=== PATIENT | female | born 1940 | race Caucasian/White ===

== ENCOUNTER 2018-06-17 02:00 | Inpatient (IN) ==
[2018-06-17] MEDS ORDERED: Ondansetron 4 MG/2 ML VIAL IVP ONE (02:20)
--- NOTE | 2018-06-17 02:20 | Emergency Department Note ---
Disposition Clinical Impression: Urinary tract infection Disposition: Admitted As Inpatient Condition: Fair Time of Disposition: 03:43 General Adult HPI - General Stated complaint: A fib Time Seen by Provider: 06/17/18 02:05 Nursing Notes Reviewed: Yes Vital Signs Reviewed: Yes - History of Present Illness HPI Narrative: Ms Hernández has been confused for the last 24 hours. She is a poor historian and falls asleep frequently during the interview but her son accompanies her after transport to [facility] by squad. She was found in the bathroom in the squad reports that she was not responding appropriately and did seem rather disoriented. Her son adds that she has been coughing up sputum for the last 24 hours or so. She is a COPD patient who still smokes. Not on home oxygen. Heart history significant for a valve replacement at [facility] in [place] one month ago. She does report that she is had a headache a small amount of cough and shortness of breath. She also tells me that she was incontinent of urine 1 earlier today. No diarrhea no emesis but a little bit of nausea. Denies abdominal pain. She feels generally weak but not in any one particular extremity. Denies any numbness or tingling in any extremity. She is unable to elaborate on any of the above symptoms. She tells me that she did get a flu shot earlier this year. - Related Data Home Medications Medication Instructions Recorded Confirmed Paroxetine HCl [Paroxetine] 40 mg PO DAILY 08/07/15 06/17/18 Cetirizine HCl [Zyrtec] 10 mg PO DAILY 08/18/15 06/17/18 Cranberry Fruit Extract [Cranberry] 425 mg PO TID 08/18/15 06/17/18 Melatonin/Pyridoxine HCl (B6) 10 mg PO HS PRN 08/18/15 06/17/18 [Melatonin 5 mg Tablet] Multivitamin [Multi-Day Vitamins] 1 each PO DAILY 08/18/15 06/17/18 HYDROcodone/Acet 7.5/325 mg [[place] 1 tab PO Q6H PRN 09/08/16 06/17/18 7.5-325 mg] Pravastatin Sodium 80 mg PO DAILY 09/08/16 06/17/18 Cyclobenzaprine [Flexeril] 5 mg PO TID PRN 10/04/17 06/17/18 Aspirin [Adult Aspirin Regimen] 81 mg PO DAILY 05/28/18 06/17/18 Clopidogrel [Plavix] 75 mg PO DAILY 05/28/18 06/17/18 Docusate Sodium [Dulcolax Stool 100 mg PO TID PRN 05/28/18 06/17/18 Softener] Fluticasone Propionate Nasal 27.5 mcg NS BID 05/28/18 06/17/18 [Flonase] Montelukast [Singulair] 10 mg PO HS 05/28/18 06/17/18 Previous Rx's Medication Instructions Recorded Carvedilol 3.125 mg PO BID #60 tab 10/07/17 Furosemide [Lasix] 20 mg PO DAILY #30 tablet 10/07/17 Potassium Chloride 10 meq PO DAILY #30 tab.er.prt 10/07/17 Allergies Allergy/AdvReac Type Severity Reaction Status Date / Time Lemon AdvReac Severe Migraine Verified 06/17/18 02:23 ciprofloxacin [From Cipro] AdvReac Dizziness Verified 06/17/18 02:23 Sulfa (Sulfonamide AdvReac Nausea Verified 06/17/18 02:23 Antibiotics) Constitutional: Denies: fever, chills Eyes: Denies: vision change ENT ED: Denies: throat pain Cardiovascular: Denies: chest pain, palpitations Gastrointestinal: Reports: nausea. Denies: abdominal pain, vomiting, diarrhea Genitourinary: Reports: as per HPI Musculoskeletal: Denies: myalgia Neurological: Reports: headache, confusion Endocrine: Reports: fatigue Hematological/Lymphatic: Denies: easy bleeding, easy bruising Past Medical History - Past Medical History Medical history: Reports: arthritis, COPD, fibromyalgia, hyperlipidemia, migraine, valvular heart disease Surgical history: Reports: cholecystectomy, hip replacement, hysterectomy Psychiatric history: Reports: anxiety, depression [employer] history: Reports: bilateral tubal ligation - Social History Smoking Status: Current every day smoker Smokeless Tobacco Status: No Alcohol use: Reports: none Drug use: Reports: none Physical Exam - General Limitations: altered mental status (Somnolent without frequent tactile redirection) General appearance: in no apparent distress, lethargic - Head Head exam: atraumatic, normocephalic, normal inspection, other (Negative Drake sign negative raccoon eyes) - Eye Eye exam: Present: normal appearance, PERRL, EOMI, conjunctival injection. Absent: periorbital swelling, periorbital tenderness - ENT ENT exam: normal oropharynx, TM's normal bilaterally, normal external ear exam - Neck Neck exam: Present: normal inspection, full ROM. Absent: lymphadenopathy - Chest Chest inspection: Present: normal inspection, symmetric chest wall rise - Respiratory Respiratory exam: Present: other (Inspiratory crackles left lower lobe. Otherwise clear to auscultation.). Absent: respiratory distress, wheezes, stridor, accessory muscle use - Cardiovascular Cardiovascular exam: Present: normal rhythm, tachycardia (110 bpm), normal heart sounds, systolic murmur (2/6 systolic ejection murmur best heard at right upper sternal border). Absent: diastolic murmur - Abdominal Exam Abdominal exam: Present: soft, Non-Tender - Extremities Exam Extremities exam: Present: normal inspection. Absent: pedal edema, calf tenderness (No calf erythema pain or cord) - Neurological Exam Neurological exam: Present: alert (When aroused with verbal and gentle tactile stimulation), CN II-XII intact. Absent: oriented X3 (Cannot name the year but states her name and place correctly), motor sensory deficit - Skin Skin exam: Present: other (Diaphoretic) Course Vital Signs Temperature 98.1 F 06/17/18 02:00 Pulse Rate 110 06/17/18 02:00 Respiratory Rate 20 06/17/18 02:00 Blood Pressure 120/75 06/17/18 02:00 O2 Sat by Pulse Oximetry 93 06/17/18 02:00 Temperature 98.1 F 06/17/18 02:00 Pulse Rate 99 06/17/18 03:28 Respiratory Rate 20 06/17/18 03:28 Blood Pressure 117/52 06/17/18 03:28 O2 Sat by Pulse Oximetry 95 06/17/18 03:28 Oxygen Delivery Oxygen Delivery Nasal Cannula Medical Decision Making - [facility] Narrative Medical decision making narrative: Mental status changes. Head CAT scan normal. Probably an infectious etiology although she is not frankly septic. She has some evidence of pneumonia on chest x-ray which appears to have a left lower lobe infiltrate. It does look similar to the most previous study which was read as atelectasis versus pneumonia however today's was read as no acute disease. She does have some findings of urinary tract infection as well. Daughter tells ER staff she typically gets confused like this with a urinary tract infection and she did have some urinary incontinence today. Regarding the possibility of pneumonia she was in [facility] in [place] overnight for the heart procedure about a month ago therefore we will treat this as a hospital acquired pneumonia with Zosyn which will also cover the urinary tract. On reassessment she is actually a bit more awake and alert and is able to consent to the CAT scan of the chest after I explained the reasoning for doing so. She has a high d-dimer probably secondary to an infectious process however she does not meet perc criteria therefore imaging is warranted. I did attempt to wean her oxygen on reassessment however her saturations dropped into the 80s on room air but rebounded nicely on 2 L to the mid 90s. - Medical Records Medical records reviewed: Yes I reviewed the patient's medical records. - Lab Data Lab results reviewed: Yes I reviewed the patient's lab results. Result diagrams: 06/17/18 03:00 06/17/18 03:00 Lab Results 06/17/18 06/17/18 06/17/18 Range/Units 02:13 03:00 03:00 WBC (4.3-11.1) K/mcL RBC (3.82-4.97) M/mcL Hgb (11.5-15.4) g/dL Hct (35.3-44.9) % MCV (83.0-100.0) fL MCH (28.0-33.3) pg MCHC (31.6-35.5) g/dL RDW (11.5-14.5) % Plt Count (140-400) K/mcL MPV (9.4-12.4) fL Immature Gran % (0-4) % Seg Neutrophils % % Lymphocytes % % Monocytes % % Eosinophils % % Basophils % % Neutrophils # (1.6-8.9) K/mcL Lymphocytes # (0.6-4.6) K/mcL Monocytes # (0.0-1.3) K/mcL Eosinophils # (0.0-0.6) K/mcL Basophils # (0.0-0.2) K/mcL D-Dimer (0-500) ng/mLFEU VBG pH (7.32-7.42) pH Units VBG pCO2 (41-51) mmHg VBG pO2 (25-50) mmHg VBG HCO3 (21-27) mEq/L Sodium 131 L (136-145) mEq/L Potassium 3.4 L (3.5-5.1) mEq/L Chloride 96 L (98-107) mEq/L Carbon Dioxide 24 (23-29) mEq/L BUN 9 (8-23) mg/dL Creatinine 0.83 (0.60-1.20) mg/dL Est GFR ( Amer) > 60 (> 60) Est GFR (Non-Af Amer) > 60 (> 60) BUN/Creatinine Ratio 11 (6-26) Glucose 138 H (70-105) mg/dL POC Glucose 134 H (70-99) mg/dL Calculated Osmolality 273 L (280-300) Lactic Acid 1.8 (0.5-2.2) mmol/L Calcium 9.2 (8.6-10.3) mg/dL Phosphorus (2.7-4.5) mg/dL Magnesium 1.6 (1.6-2.6) mg/dL Total Bilirubin 1.1 H (0.3-1.0) mg/dL AST 18 (13-39) Units/L ALT 10 (7-52) Units/L Alkaline Phosphatase 83 (34-104) Units/L Troponin I (< 0.04) ng/mL B-Natriuretic Peptide (Less than 100) pg/mL Serum Total Protein 7.1 (6.4-8.9) g/dL Albumin 4.0 (3.5-5.7) g/dL Globulin 3.1 (2.4-3.5) g/dL Albumin/Globulin Ratio 1.3 (1.1-2.2) Lipase (11-82) Units/L TSH (0.340-5.600) mcIU/mL Urine Color (Yellow) Urine Clarity (Clear) Urine pH (5.0-8.0) pH Units Ur Specific [place] (1.010-1.025) Urine Protein (Neg-Trace) mg/dL Urine Glucose (UA) (Normal) mg/dL Urine Ketones (Negative) mg/dL Urine Blood (Negative) Urine Nitrite (Negative) Urine Bilirubin (Negative) Urine Urobilinogen (Normal) mg/dL Ur Leukocyte Esterase (Negative) Urine Microscopic RBC (0-3) per hpf Urine Microscopic WBC (0-3) per hpf Ur Squamous Epith Cells (None-Few) per lpf Urine Bacteria (None-Few) per hpf Ur Culture Indicated? (NO) Salicylates (15.0-30.0) mg/dL Urine Opiates Screen (Rkxqpw=198) ng/mL Acetaminophen (10-20) mcg/mL Ur Barbiturates Screen (Uiuvqd=514) ng/mL Ur Phencyclidine Scrn (Cutoff=25) ng/mL Ur Amphetamines Screen (Ttggbv=4196) ng/mL U Benzodiazepines Scrn (Didplc=301) ng/mL Urine Cocaine Screen (Cutoff= 300) ng/mL U Marijuana (THC) Screen (Cutoff = 50) ng/mL Ur Drug Screen Interp Ethyl Alcohol (Less than 10) mg/dL 06/17/18 06/17/18 06/17/18 Range/Units 03:00 03:00 03:00 WBC (4.3-11.1) K/mcL RBC (3.82-4.97) M/mcL Hgb (11.5-15.4) g/dL Hct (35.3-44.9) % MCV (83.0-100.0) fL MCH (28.0-33.3) pg MCHC (31.6-35.5) g/dL RDW (11.5-14.5) % Plt Count (140-400) K/mcL MPV (9.4-12.4) fL Immature Gran % (0-4) % Seg Neutrophils % % Lymphocytes % % Monocytes % % Eosinophils % % Basophils % % Neutrophils # (1.6-8.9) K/mcL Lymphocytes # (0.6-4.6) K/mcL Monocytes # (0.0-1.3) K/mcL Eosinophils # (0.0-0.6) K/mcL Basophils # (0.0-0.2) K/mcL D-Dimer 1657 H (0-500) ng/mLFEU VBG pH (7.32-7.42) pH Units VBG pCO2 (41-51) mmHg VBG pO2 (25-50) mmHg VBG HCO3 (21-27) mEq/L Sodium (136-145) mEq/L Potassium (3.5-5.1) mEq/L Chloride (98-107) mEq/L Carbon Dioxide (23-29) mEq/L BUN (8-23) mg/dL Creatinine (0.60-1.20) mg/dL Est GFR ( Amer) (> 60) Est GFR (Non-Af Amer) (> 60) BUN/Creatinine Ratio (6-26) Glucose (70-105) mg/dL POC Glucose (70-99) mg/dL Calculated Osmolality (280-300) Lactic Acid (0.5-2.2) mmol/L Calcium (8.6-10.3) mg/dL Phosphorus 2.6 L (2.7-4.5) mg/dL Magnesium (1.6-2.6) mg/dL Total Bilirubin (0.3-1.0) mg/dL AST (13-39) Units/L ALT (7-52) Units/L Alkaline Phosphatase (34-104) Units/L Troponin I (< 0.04) ng/mL B-Natriuretic Peptide (Less than 100) pg/mL Serum Total Protein (6.4-8.9) g/dL Albumin (3.5-5.7) g/dL Globulin (2.4-3.5) g/dL Albumin/Globulin Ratio (1.1-2.2) Lipase < 3 L (11-82) Units/L TSH 2.023 (0.340-5.600) mcIU/mL Urine Color (Yellow) Urine Clarity (Clear) Urine pH (5.0-8.0) pH Units Ur Specific [place] (1.010-1.025) Urine Protein (Neg-Trace) mg/dL Urine Glucose (UA) (Normal) mg/dL Urine Ketones (Negative) mg/dL Urine Blood (Negative) Urine Nitrite (Negative) Urine Bilirubin (Negative) Urine Urobilinogen (Normal) mg/dL Ur Leukocyte Esterase (Negative) Urine Microscopic RBC (0-3) per hpf Urine Microscopic WBC (0-3) per hpf Ur Squamous Epith Cells (None-Few) per lpf Urine Bacteria (None-Few) per hpf Ur Culture Indicated? (NO) Salicylates < 2.5 L (15.0-30.0) mg/dL Urine Opiates Screen (Xrffxp=419) ng/mL Acetaminophen < 10 L (10-20) mcg/mL Ur Barbiturates Screen (Pylvnb=599) ng/mL Ur Phencyclidine Scrn (Cutoff=25) ng/mL Ur Amphetamines Screen (Lzxsjf=5534) ng/mL U Benzodiazepines Scrn (Smhamy=036) ng/mL Urine Cocaine Screen (Cutoff= 300) ng/mL U Marijuana (THC) Screen (Cutoff = 50) ng/mL Ur Drug Screen Interp Ethyl Alcohol < 10 (Less than 10) mg/dL 06/17/18 06/17/18 06/17/18 Range/Units 03:00 03:00 03:00 WBC 21.9 H (4.3-11.1) K/mcL RBC 4.69 (3.82-4.97) M/mcL Hgb 14.5 (11.5-15.4) g/dL Hct 42.3 (35.3-44.9) % MCV 90.2 (83.0-100.0) fL MCH 30.9 (28.0-33.3) pg MCHC 34.3 (31.6-35.5) g/dL RDW 13.1 (11.5-14.5) % Plt Count 216 (140-400) K/mcL MPV 9.5 (9.4-12.4) fL Immature Gran % 1.0 (0-4) % Seg Neutrophils % 88.0 % Lymphocytes % 3.9 % Monocytes % 6.8 % Eosinophils % 0.1 % Basophils % 0.2 % Neutrophils # 19.3 H (1.6-8.9) K/mcL Lymphocytes # 0.9 (0.6-4.6) K/mcL Monocytes # 1.5 H (0.0-1.3) K/mcL Eosinophils # 0.0 (0.0-0.6) K/mcL Basophils # 0.0 (0.0-0.2) K/mcL D-Dimer (0-500) ng/mLFEU VBG pH (7.32-7.42) pH Units VBG pCO2 (41-51) mmHg VBG pO2 (25-50) mmHg VBG HCO3 (21-27) mEq/L Sodium (136-145) mEq/L Potassium (3.5-5.1) mEq/L Chloride (98-107) mEq/L Carbon Dioxide (23-29) mEq/L BUN (8-23) mg/dL Creatinine (0.60-1.20) mg/dL Est GFR ( Amer) (> 60) Est GFR (Non-Af Amer) (> 60) BUN/Creatinine Ratio (6-26) Glucose (70-105) mg/dL POC Glucose (70-99) mg/dL Calculated Osmolality (280-300) Lactic Acid (0.5-2.2) mmol/L Calcium (8.6-10.3) mg/dL Phosphorus (2.7-4.5) mg/dL Magnesium (1.6-2.6) mg/dL Total Bilirubin (0.3-1.0) mg/dL AST (13-39) Units/L ALT (7-52) Units/L Alkaline Phosphatase (34-104) Units/L Troponin I < 0.03 (< 0.04) ng/mL B-Natriuretic Peptide 151 H (Less than 100) pg/mL Serum Total Protein (6.4-8.9) g/dL Albumin (3.5-5.7) g/dL Globulin (2.4-3.5) g/dL Albumin/Globulin Ratio (1.1-2.2) Lipase (11-82) Units/L TSH (0.340-5.600) mcIU/mL Urine Color (Yellow) Urine Clarity (Clear) Urine pH (5.0-8.0) pH Units Ur Specific [place] (1.010-1.025) Urine Protein (Neg-Trace) mg/dL Urine Glucose (UA) (Normal) mg/dL Urine Ketones (Negative) mg/dL Urine Blood (Negative) Urine Nitrite (Negative) Urine Bilirubin (Negative) Urine Urobilinogen (Normal) mg/dL Ur Leukocyte Esterase (Negative) Urine Microscopic RBC (0-3) per hpf Urine Microscopic WBC (0-3) per hpf Ur Squamous Epith Cells (None-Few) per lpf Urine Bacteria (None-Few) per hpf Ur Culture Indicated? (NO) Salicylates (15.0-30.0) mg/dL Urine Opiates Screen (Bwtopj=297) ng/mL Acetaminophen (10-20) mcg/mL Ur Barbiturates Screen (Znerku=772) ng/mL Ur Phencyclidine Scrn (Cutoff=25) ng/mL Ur Amphetamines Screen (Xrlnno=8940) ng/mL U Benzodiazepines Scrn (Qkdugs=228) ng/mL Urine Cocaine Screen (Cutoff= 300) ng/mL U Marijuana (THC) Screen (Cutoff = 50) ng/mL Ur Drug Screen Interp Ethyl Alcohol (Less than 10) mg/dL 06/17/18 06/17/18 06/17/18 Range/Units 03:17 03:27 03:27 WBC (4.3-11.1) K/mcL RBC (3.82-4.97) M/mcL Hgb (11.5-15.4) g/dL Hct (35.3-44.9) % MCV (83.0-100.0) fL MCH (28.0-33.3) pg MCHC (31.6-35.5) g/dL RDW (11.5-14.5) % Plt Count (140-400) K/mcL MPV (9.4-12.4) fL Immature Gran % (0-4) % Seg Neutrophils % % Lymphocytes % % Monocytes % % Eosinophils % % Basophils % % Neutrophils # (1.6-8.9) K/mcL Lymphocytes # (0.6-4.6) K/mcL Monocytes # (0.0-1.3) K/mcL Eosinophils # (0.0-0.6) K/mcL Basophils # (0.0-0.2) K/mcL D-Dimer (0-500) ng/mLFEU VBG pH 7.42 (7.32-7.42) pH Units VBG pCO2 37 L (41-51) mmHg VBG pO2 47 (25-50) mmHg VBG HCO3 24 (21-27) mEq/L Sodium (136-145) mEq/L Potassium (3.5-5.1) mEq/L Chloride (98-107) mEq/L Carbon Dioxide (23-29) mEq/L BUN (8-23) mg/dL Creatinine (0.60-1.20) mg/dL Est GFR ( Amer) (> 60) Est GFR (Non-Af Amer) (> 60) BUN/Creatinine Ratio (6-26) Glucose (70-105) mg/dL POC Glucose (70-99) mg/dL Calculated Osmolality (280-300) Lactic Acid (0.5-2.2) mmol/L Calcium (8.6-10.3) mg/dL Phosphorus (2.7-4.5) mg/dL Magnesium (1.6-2.6) mg/dL Total Bilirubin (0.3-1.0) mg/dL AST (13-39) Units/L ALT (7-52) Units/L Alkaline Phosphatase (34-104) Units/L Troponin I (< 0.04) ng/mL B-Natriuretic Peptide (Less than 100) pg/mL Serum Total Protein (6.4-8.9) g/dL Albumin (3.5-5.7) g/dL Globulin (2.4-3.5) g/dL Albumin/Globulin Ratio (1.1-2.2) Lipase (11-82) Units/L TSH (0.340-5.600) mcIU/mL Urine Color Yellow (Yellow) Urine Clarity Slightly Cloudy A (Clear) Urine pH 6.0 (5.0-8.0) pH Units Ur Specific [place] 1.020 (1.010-1.025) Urine Protein 100 H (Neg-Trace) mg/dL Urine Glucose (UA) Normal (Normal) mg/dL Urine Ketones Negative (Negative) mg/dL Urine Blood Trace-intact H (Negative) Urine Nitrite Positive A (Negative) Urine Bilirubin Negative (Negative) Urine Urobilinogen Normal (Normal) mg/dL Ur Leukocyte Esterase Small H (Negative) Urine Microscopic RBC 0-3 (0-3) per hpf Urine Microscopic WBC 5-15 H (0-3) per hpf Ur Squamous Epith Cells Few (None-Few) per lpf Urine Bacteria Moderate H (None-Few) per hpf Ur Culture Indicated? YES A (NO) Salicylates (15.0-30.0) mg/dL Urine Opiates Screen Positive H (Apdkvr=938) ng/mL Acetaminophen (10-20) mcg/mL Ur Barbiturates Screen Negative (Invybz=260) ng/mL Ur Phencyclidine Scrn Negative (Cutoff=25) ng/mL Ur Amphetamines Screen Negative (Xsueog=7030) ng/mL U Benzodiazepines Scrn Negative (Lqdzfh=930) ng/mL Urine Cocaine Screen Negative (Cutoff= 300) ng/mL U Marijuana (THC) Screen Negative (Cutoff = 50) ng/mL Ur Drug Screen Interp See Below Ethyl Alcohol (Less than 10) mg/dL - Radiology Data Radiology results reviewed: Yes I reviewed the patient's radiology results. - EKG Data EKG #1 EKG attestation: Yes I reviewed and interpreted this EKG. EKG results narrative: EKG as interpreted by me sinus tachycardia 110 bpm no T-wave abnormalities. One box ST depression V2 V3 V4 V5 V6. No ST elevations. Normal axis. No evidence of hypertrophy. ST depressions not present January 2018 study.
[2018-06-17] MEDS ORDERED: 0.9 % Sodium Chloride 500 ML IVC ONE ×2 (02:21→05:39)
[2018-06-17 03:18] LABS: Basophils % 0.2 %; Eosinophils % 0.1 %; Hematocrit 42.3 % (35.3-44.9); Hemoglobin 14.5 g/dL (11.5-15.4); Lymphocytes # 0.9 K/mcL (0.6-4.6); Lymphocytes % 3.9 %; Mean Corpuscular HGB Conc 34.3 g/dL (31.6-35.5); Mean Corpuscular Hemoglobin 30.9 pg (28.0-33.3); Mean Corpuscular Volume 90.2 fL (83.0-100.0); Mean Platelet Volume 9.5 fL (9.4-12.4); Monocytes # 1.5 K/mcL (0.0-1.3); Monocytes % 6.8 %; Neutrophils # 19.3 K/mcL (1.6-8.9); Platelet Count 216 K/mcL (140-400); Red Blood Count 4.69 M/mcL (3.82-4.97); Red Cell Distribution Width 13.1 % (11.5-14.5)
[2018-06-17 03:22] LABS: VBG HCO3 24 mEq/L (21-27); VBG PCO2 37 mmHg (41-51); VBG PH 7.42 pH Units (7.32-7.42); VBG PO2 47 mmHg (25-50)
[2018-06-17 03:24] LABS: Acetaminophen < 10 mcg/mL (10-20); Alanine Aminotransferase 10 Units/L (7-52); Albumin/Globulin Ratio 1.3 (1.1-2.2); Alkaline Phosphatase 83 Units/L (34-104); Aspartate Amino Transferase 18 Units/L (13-39); BUN/Creatinine Ratio 11 (6-26); Bilirubin,Total 1.1 mg/dL (0.3-1.0); Blood Urea Nitrogen 9 mg/dL (8-23); Calcium 9.2 mg/dL (8.6-10.3); Carbon Dioxide 24 mEq/L (23-29); Chloride 96 mEq/L (98-107); Globulin 3.1 g/dL (2.4-3.5); Glucose 138 mg/dL (70-105); Magnesium 1.6 mg/dL (1.6-2.6); Osmolality,Calculated 273 (280-300); Potassium 3.4 mEq/L (3.5-5.1); Salicylate < 2.5 mg/dL (15.0-30.0); Sodium 131 mEq/L (136-145); Total Protein 7.1 g/dL (6.4-8.9); eGFR For Non-African Americans > 60 (> 60)
[2018-06-17 03:35] LABS: Bilirubin,Urine Negative (Negative); Blood,Urine Trace-intact (Negative); Clarity,Urine Slightly Cloudy (Clear); Color,Urine Yellow (Yellow); Glucose,Urine (UA) Normal (Normal); Ketones,Urine Negative (Negative); Leukocyte Esterase,Urine Small (Negative); Nitrite,Urine Positive (Negative); Protein,Urine 100 mg/dL (Neg-Trace); Urobilinogen,Urine Normal (Normal)
[2018-06-17 03:38] LABS: Bacteria,Urine Moderate per hpf (None-Few); RBC,Urine 0-3 per hpf (0-3); Squamous Epithelial Cell,Urine Few per lpf (None-Few)
[2018-06-17 03:40] LABS: Ethanol < 10 mg/dL (Less than 10); Lipase < 3 Units/L (11-82); Phosphorous 2.6 mg/dL (2.7-4.5)
[2018-06-17] MEDS ORDERED: Isovue-370 500 ML INFUS..BTL IV ONE ×2 (03:42→03:59)
[2018-06-17] MEDS ORDERED: Piperacillin/Tazobactam 4.5 GM in 0.9 % Sodium Chloride Mini Bag 100 ML IVPB ONE ×2 (03:42→03:59)
[2018-06-17 03:52] LABS: Thyroid Stimulating Hormone 2.023 mcIU/mL (0.340-5.600)
[2018-06-17] MEDS ORDERED: Naloxone 0.4 MG/ML INJ IVP PRN (03:59)
[2018-06-17] MEDS ORDERED: MELATONIN PO PRN (03:59)
[2018-06-17] MEDS ORDERED: PYRIDOXINE HCL PO PRN (03:59)
[2018-06-17] MEDS ORDERED: *HR* HYDROcodone/Acet 7.5/325 mg TABLET PO PRN (03:59)
[2018-06-17 04:00] LABS: Amphetamine Screen,Urine Negative ng/mL (Cutoff=1000); Barbiturate Screen,Urine Negative ng/mL (Cutoff=200); Benzodiazepines Screen,Urine Negative ng/mL (Cutoff=200); Cannabinoid Screen,Urine Negative ng/mL (Cutoff = 50); Cocaine Screen,Urine Negative ng/mL (Cutoff= 300); Opiate Screen,Urine Positive ng/mL (Cutoff=300); Phencyclidine Screen,Urine Negative ng/mL (Cutoff=25)
[2018-06-17] MEDS ORDERED: Piperacillin/Tazobactam 3.375 GM in 0.9 % Sodium Chloride Mini Bag 100 ML IVPB SCH ×2 (04:00→12:00)
[2018-06-17 04:05] LABS: INR 1.2; Prothrombin Time 13.7 Seconds (9.4-12.1)
[2018-06-17 04:08] LABS: Activated Partial Thrombo Time 31.3 Seconds (26.0-36.0)
[2018-06-17] MEDS ORDERED: ISOVUE-370 100 ML INFUS..BTL IVP ONE (04:30)
[2018-06-17] MEDS: 0.9 % Sodium Chloride 1,000 ML IVC SCH (07:11)
[2018-06-17] MEDS ORDERED: *HR* Heparin 5,000 UNIT/ML VIAL SQ ONE (08:00)
[2018-06-17] MEDS: *HR* Heparin 5,000 UNIT/ML VIAL SQ SCH ×2 (09:33→17:41)
[2018-06-17] MEDS: Loratadine 10 MG TABLET PO SCH (09:33)
[2018-06-17] MEDS: Multivit/Ca/Min/Fe/FA 1 TAB TABLET PO SCH (09:34)
[2018-06-17] MEDS: Aspirin Enteric Coated 81 MG Tablet PO SCH (09:34)
[2018-06-17] MEDS: Furosemide 20 MG TABLET PO SCH (09:34)
[2018-06-17] MEDS: CRANBERRY FRUIT EXTRACT 425 MG PO SCH ×3 (09:35→20:14)
[2018-06-17] MEDS: Fluticasone Propionate Nasal 50 MCG/SPRAY BOTTLE NS SCH ×2 (09:35→20:14)
--- NOTE | 2018-06-17 09:57 | Internal Med History&Physical ---
Date of Encounter: 06/17/18 Time of Encounter: 12:29 Assessment and Plan (1) Leukocytosis (leucocytosis) Current visit: Yes Status: Acute She has blood cultures and urine cultures pending she is on Zosyn for hospital- acquired pneumonia she is also on Vanco since she had a recent aortic valve replacement. We will continue to follow her white count. Qualifiers: Leukocytosis type: unspecified Qualified Code(s): D72.829 - Elevated white blood cell count, unspecified (2) HTN (hypertension) Current visit: Yes Status: Acute Her blood pressures been stable we will continue her home dose of carvedilol. Qualifiers: Hypertension type: essential hypertension Qualified Code(s): I10 - Essential (primary) hypertension (3) Mixed hyperlipidemia Current visit: Yes Status: Acute Will continue her home pravastatin. (4) Lumbar foraminal stenosis Current visit: Yes Status: Acute She does have lumbar stenosis. She does get chronic narcotic she states that she takes hydrocodone 7.5 mg 4 times a day. I am going to hold that since she is not alert enough to ask for she also is not alert enough to continue to ask questions I discussed with her she has to be alert enough and not pharmacy asked questions to be able to receive another dose. I am also holding her Flexeril for the same reason (5) S/P AVR (aortic valve replacement) Current visit: Yes Status: Acute (6) Tobacco abuse Current visit: Yes Status: Acute Discussed that she needs to quit. (7) COPD (chronic obstructive pulmonary disease) Current visit: Yes Status: Acute She is not aware of what inhaler she take she does not think that she has nebulizer at home. But she does have those on her home medication list. We will continue duo nebs and oxygen. She may require steroids but I am hesitant at that she has elevated white count and that would decrease her ability to fight off infection. We will continue to follow Qualifiers: COPD type: unspecified COPD Qualified Code(s): J44.9 - Chronic obstructive pulmonary disease, unspecified (8) Urinary tract infection Current visit: Yes Status: Acute Urine culture is pending she is on Zosyn. We will continue that until we have cultures back Qualifiers: Urinary tract infection type: acute cystitis Hematuria presence: with h ematuria Qualified Code(s): N30.01 - Acute cystitis with hematuria (9) DVT prophylaxis Current visit: No Status: Acute She has heparin subcutaneous. (10) Hypokalemia Current visit: No Status: Resolved (11) Aortic stenosis, severe Current visit: No Status: Acute Internal Medicine - H&P: HPI Chief complaint: confusion Admitted From: Home Plans for Post Hospital Care: Home History of present illness: Ms. Hernández is a 77 year old female With a past medical history of hypertension hyperlipidemia status post aortic valve replacement in February 2018 chronic narcotic use, history of sepsis with UTIs presented to the emergency room with confusion and disorientation. She will answer questions appropriately now but she falls asleep mid sentence any have to wake her up while talking to her. She says that she is here because she has UTI again. When I questioned her about that she said this because they told her in ER that she had a UTI. She has not had any change in urinary symptoms she does not have any dysuria urinary frequency hematuria foul-smelling urine. She is incontinence that is chronic there has not been any changes in the frequency or the type of incontinence that she has. She does have confusion and some somnolence. She also states that she has had a cough for a couple of days. She has had some chills and some sweats. She did have some nausea she thinks yesterday morning but denies any emesis. She thinks her cough has gone on all summer. But she does know that it is May currently. In the emergency room she was noted to have a white count of 21,000. She had a CT scan to rule out PE did not show PE but did show some secretions in the airway. She has blood cultures and urine cultures pending. She was started on Zosyn in the ER for possible sepsis versus hospital-acquired pneumonia given the fact that she had her aortic valve replacement in February. Vancomycin was added this morning because of the aortic valve replacement. She was initially tachycardic when she came into the emergency room she did receive to 500 mL IV fluid boluses that did resolve her tachycardia. She currently is not having any pain she states that she does take her pain medicine every 6 hours while at home. She has not had a problem with falling asleep dizziness passing out loss of consciousness she is aware of. Past Med Surg Social Fam HX - Past Medical History Medical history: arthritis, COPD, fibromyalgia, GERD, hyperlipidemia, hypertension, migraine, valvular heart disease (transcatheter avr 03/19/18), other (Pulmonary fibrosis, lumbar foraminal stenosis, hypokalemia, lumbar degenerative disc disease, spondylolisthesis lumbar, obstructive sleep apnea, history of UTIs with sepsis) Additional medical history: rheumatoid arthritis Psychiatric history: anxiety, depression - Past Surgical History Surgical History: cholecystectomy (Robotic laparoscopic cholecystectomy 08/18/2015), heart valve replacement (Transcatheter aortic valve replacement 03/11/2018), hip replacement (Bilateral), orthopedic, other (Carpal tunnel surgery right, right knee meniscus repair,), SHIV/BSO, other (Tubal ligation) - Social History Smoking Status: Current every day smoker Smokeless Tobacco Status: No Alcohol use: none Drug use: none Current living situation: Home - Independent (Family looks in on her) - Family History Father Adopted: No Family Member Ethnicity: Non- Living Status: Hx Family Cardiac Disorders: Yes (Heart disease) Hx Family Respiratory Disorders: No Hx Family Cancer: No Hx Family GI Disorders: No Hx Family Endocrine Disorder: Yes (diabetes) Hx Family Neuromuscular Disorders: No Hx Family Neurologic Disorders: No Hx Family HEENT Disorders: No Hx Family Autoimmune Disorders: No Mother Living Status: Hx Family Cardiac Disorders: Yes (Heart disease) Hx Family Endocrine Disorder: Yes (Diabetes) Brother Living Status: Hx Family Cardiac Disorders: Yes (mi) Sister Living Status: Hx Family Genitourinary Disorders: Yes (Renal disease) Paternal Grandmother Living Status: Hx Family Endocrine Disorder: Yes (Diabetes) Maternal Grandmother Living Status: Hx Family Cancer: Yes Maternal Grandfather Living Status: Hx Family Cancer: Yes Internal Medicine - H&P: Meds Paroxetine HCl [Paroxetine] 40 mg PO DAILY 08/07/15 [History] Cetirizine HCl [Zyrtec] 10 mg PO DAILY 08/18/15 [History] Cranberry Fruit Extract [Cranberry] 425 mg PO TID 08/18/15 [History] Melatonin/Pyridoxine HCl (B6) [Melatonin 5 mg Tablet] 10 mg PO HS PRN 08/18/15 [History] Multivitamin [Multi-Day Vitamins] 1 each PO DAILY 08/18/15 [History] HYDROcodone/Acet 7.5/325 mg [[place] 7.5-325 mg] 1 tab PO Q6H PRN 09/08/16 [History] Pravastatin Sodium 80 mg PO DAILY 09/08/16 [History] Cyclobenzaprine [Flexeril] 5 mg PO TID PRN 10/04/17 [History] Carvedilol 3.125 mg PO BID #60 tab 10/07/17 [Rx] Furosemide [Lasix] 20 mg PO DAILY #30 tablet 10/07/17 [Rx] Potassium Chloride 10 meq PO DAILY #30 tab.er.prt 10/07/17 [Rx] Aspirin [Adult Aspirin Regimen] 81 mg PO DAILY 05/28/18 [History] Clopidogrel [Plavix] 75 mg PO DAILY 05/28/18 [History] Docusate Sodium [Dulcolax Stool Softener] 100 mg PO TID PRN 05/28/18 [History] Fluticasone Propionate Nasal [Flonase] 27.5 mcg NS BID 05/28/18 [History] Montelukast [Singulair] 10 mg PO HS 05/28/18 [History] Allergy/AdvReac Type Severity Reaction Status Date / Time Lemon AdvReac Severe Migraine Verified 06/17/18 02:23 ciprofloxacin [From Cipro] AdvReac Dizziness Verified 06/17/18 02:23 Sulfa (Sulfonamide AdvReac Nausea Verified 06/17/18 02:23 Antibiotics) All Systems PM: A 10-system review of systems was performed and is negative for pertinent findings except as documented above in the HPI. - Constitutional Constitutional: chills, fatigue, no fever(s), no falls, no malaise, no weakness, no weight gain, no weight loss - EENT Eyes: no change in vision, no loss of vision Nose, mouth and throat: no nasal congestion, no sinus pressure, no sore throat - Cardiovascular Cardiovascular ROS IM: no chest pain, no dyspnea, no lightheadedness, no orthopnea, no palpitations, no paroxysmal nocturnal dyspnea, no syncope - Respiratory Respiratory: cough, wheezing (She has not been using her nebulizer. She does have occasional wheezing.), no hemoptysis, no chest congestion - Gastrointestinal Gastrointestinal: nausea, no abdominal pain, no constipation, no hematochezia, no loose stools, no melena - Genitourinary Genitourinary: urinary incontinence, no difficulty voiding, no dysuria, no hematuria, no urinary frequency - Musculoskeletal Musculoskeletal ROS IM: arthralgias, no limited range of motion, no muscle cramps, no numbness - Integumentary Integumentary IM: no pruritus, no rash - Neurological Neurological ROS: confusion, no dizziness, no focal weakness, no frequent falls, no loss of vision, no paresthesias - Constitutional Vitals: Temp Pulse Resp BP Pulse Ox 97.5 F L 80 14 122/77 93 06/17/18 06:31 06/17/18 06:31 06/17/18 06:31 06/17/18 06:31 06/17/18 06:56 General appearance: Present: A&O X 2 (Name place month year daily week but not date), morbidly obese, no acute distress, answers questions appropriately (But does fall asleep answering questions and has to woken up) - Head Head exam: Present: atraumatic, normocephalic - Eye Eye exam: Present: EOMI, PERRL. Absent: nystagmus - Neck Neck exam general surgery: Present: full ROM, supple, trachea midline. Absent: lymphadenopathy, tenderness - Respiratory Respiratory exam: Present: decreased breath sounds, prolonged expiratory phase, wheezes (Scattered) - Cardiovascular Cardiovascular exam: Present: RRR, +S1, +S2, systolic murmur. Absent: JVD - GI/Abdominal GI/Abdominal exam: Present: normal bowel sounds, soft, no peritoneal signs. Absent: distended, guarding, mass (But obese), tenderness - Extremities Exam Extremities exam: Present: normal capillary refill, warm. Absent: pedal edema - Skin Skin exam: Present: dry, warm. Absent: rash Internal Med - H&P Results - Labs CBC & Chem 7: 06/17/18 03:00 06/17/18 03:00 Labs: Short CBC 06/17/18 Range/Units 03:00 WBC 21.9 H (4.3-11.1) K/mcL Hgb 14.5 (11.5-15.4) g/dL Hct 42.3 (35.3-44.9) % Plt Count 216 (140-400) K/mcL Neutrophils # 19.3 H (1.6-8.9) K/mcL BMP 06/17/18 03:00 Sodium 131 L Potassium 3.4 L Chloride 96 L Carbon Dioxide 24 BUN 9 Creatinine 0.83 Glucose 138 H Calcium 9.2 Cardiac Enzymes 06/17/18 Range/Units 03:00 Troponin I < 0.03 (< 0.04) ng/mL Liver Function 06/17/18 Range/Units 03:00 Total Bilirubin 1.1 H (0.3-1.0) mg/dL AST 18 (13-39) Units/L ALT 10 (7-52) Units/L Alkaline Phosphatase 83 (34-104) Units/L Albumin 4.0 (3.5-5.7) g/dL Urine 06/17/18 Range/Units 03:27 Urine Color Yellow (Yellow) Urine Clarity Slightly Cloudy A (Clear) Urine pH 6.0 (5.0-8.0) pH Units Ur Specific [place] 1.020 (1.010-1.025) Urine Protein 100 H (Neg-Trace) mg/dL Urine Glucose (UA) Normal (Normal) mg/dL - ABG Interpretation ABG results: 06/17/18 03:17 VBG pH 7.42 VBG pCO2 37 L VBG pO2 47 VBG HCO3 24 - Impressions ITS Impressions Head CT 06/17/18 02:20 IMPRESSION: No acute intracranial abnormality. Mild age related volume loss and chronic microvascular ischemic changes. D/ / Cornell Waldrop / Cornell Waldrop Interpreting Provider: Cornell Waldrop Chest X-Ray 06/17/18 02:24 IMPRESSION: No acute cardiopulmonary findings. Emphysema with COPD. D/ / Cornell Waldrop / Cornell Waldrop Interpreting Provider: Cornell Waldrop Chest CTA 06/17/18 03:42 IMPRESSION: Negative for acute pulmonary embolism. Copious tracheobronchial secretions without evidence of aspiration pneumonitis. Query aspiration risk. Mediastinal and hilar lymphadenopathy is presumably reactive and similar to the most recent prior exam as well as exams dating back through 2011, presumably reactive. Moderate centrilobular and paraseptal emphysema. Mild scattered pleural calcifications could potentially reflect asbestos related pleural disease. D/ / Cornell Waldrop / Cornell Waldrop Interpreting Provider: Cornell Waldrop
[2018-06-17] MEDS: Piperacillin/Tazobactam 3.375 GM in 0.9 % Sodium Chloride Mini Bag 100 ML IVPB SCH ×2 (13:08→20:15)
[2018-06-17] MEDS: Ipratropium/Albuterol Neb 3 ML IH SCH ×2 (15:23→18:49)
[2018-06-18] MEDS: Ipratropium/Albuterol Neb 3 ML IH SCH ×6 (00:36→18:54)
[2018-06-18] MEDS: *HR* HYDROcodone/Acet 5/325 mg TABLET PO PRN ×3 (01:10→21:34)
[2018-06-18] MEDS: 0.9 % Sodium Chloride 1,000 ML IVC SCH (03:12)
[2018-06-18] MEDS: Piperacillin/Tazobactam 3.375 GM in 0.9 % Sodium Chloride Mini Bag 100 ML IVPB SCH ×3 (04:20→20:00)
[2018-06-18] MEDS: *HR* Heparin 5,000 UNIT/ML VIAL SQ SCH ×2 (05:29→17:37)
[2018-06-18 05:47] LABS: Basophils % 0.3 %; Eosinophils # 0.1 K/mcL (0.0-0.6); Eosinophils % 0.8 %; Immature Granulocytes % 0.5 % (0-4); Lymphocytes # 1.3 K/mcL (0.6-4.6); Lymphocytes % 11.4 %; Mean Corpuscular HGB Conc 33.7 g/dL (31.6-35.5); Mean Corpuscular Hemoglobin 31.2 pg (28.0-33.3); Mean Corpuscular Volume 92.6 fL (83.0-100.0); Mean Platelet Volume 9.5 fL (9.4-12.4); Monocytes % 8.9 %; Platelet Count 172 K/mcL (140-400); Red Blood Count 3.78 M/mcL (3.82-4.97); Red Cell Distribution Width 13.2 % (11.5-14.5); Segmented Neutrophils % 78.1 %
[2018-06-18 05:48] LABS: Hemoglobin 11.8 g/dL (11.5-15.4)
[2018-06-18 06:03] LABS: BUN/Creatinine Ratio 11 (6-26); Blood Urea Nitrogen 9 mg/dL (8-23); Calcium 8.3 mg/dL (8.6-10.3); Carbon Dioxide 27 mEq/L (23-29); Chloride 99 mEq/L (98-107); Glucose 105 mg/dL (70-105); Osmolality,Calculated 271 (280-300); Potassium 3.6 mEq/L (3.5-5.1); Sodium 131 mEq/L (136-145); eGFR For Non-African Americans > 60 (> 60)
[2018-06-18] MEDS: Furosemide 20 MG TABLET PO SCH (08:21)
[2018-06-18] MEDS: Aspirin Enteric Coated 81 MG Tablet PO SCH (08:21)
[2018-06-18] MEDS: Multivit/Ca/Min/Fe/FA 1 TAB TABLET PO SCH (08:21)
[2018-06-18] MEDS: Fluticasone Propionate Nasal 50 MCG/SPRAY BOTTLE NS SCH ×2 (08:22→20:07)
[2018-06-18] MEDS: Loratadine 10 MG TABLET PO SCH (08:22)
[2018-06-18] MEDS: CRANBERRY FRUIT EXTRACT 425 MG PO SCH ×3 (08:23→20:08)
--- NOTE | 2018-06-18 10:53 | Internal Med Progress Note ---
Date of Encounter: 06/18/18 Time of Encounter: 10:53 - Assessment and plan (1) Leukocytosis (leucocytosis) Current Visit: Yes Status: Acute Assessment and plan: this has improved. she did have a fever last night. will continue the zosyn and the vancomycin with her AVR. cultures are still pending. she is feeling better Qualifiers: Leukocytosis type: unspecified Qualified Code(s): D72.829 - Elevated white blood cell count, unspecified (2) HTN (hypertension) Current Visit: Yes Status: Acute Assessment and plan: has been stable on her home medication Qualifiers: Hypertension type: essential hypertension Qualified Code(s): I10 - Essential (primary) hypertension (3) Mixed hyperlipidemia Current Visit: Yes Status: Acute Assessment and plan: continue her home medication (4) Lumbar foraminal stenosis Current Visit: Yes Status: Acute Assessment and plan: holding flexeril due to age and decreased mental status. was holding the hydrocodone for the same reason. she did get headache last night and has been alert so she did one dose of hydrocodone last night (5) S/P AVR (aortic valve replacement) Current Visit: Yes Status: Acute (6) Tobacco abuse Current Visit: Yes Status: Acute (7) COPD (chronic obstructive pulmonary disease) Current Visit: Yes Status: Acute Qualifiers: COPD type: unspecified COPD Qualified Code(s): J44.9 - Chronic obstructive pulmonary disease, unspecified (8) Urinary tract infection Current Visit: Yes Status: Acute Qualifiers: Urinary tract infection type: acute cystitis Hematuria presence: with h ematuria Qualified Code(s): N30.01 - Acute cystitis with hematuria (9) DVT prophylaxis Current Visit: No Status: Acute (10) Hypokalemia Current Visit: No Status: Resolved (11) Aortic stenosis, severe Current Visit: No Status: Acute - Subjective Interval history: she is feeling better today. she is more alert. she had a headache last night when she had a fever of 100.6. she get a dose of hydrocodone/tylenol then. s he feels better now. she has had a cough with clear sputum. occ sob when getting up, no cp, no palp, no dizzy, she had a small stool today. denies dysuria, urine freq or hematuria. - Constitutional Vitals: Temp Pulse Resp BP Pulse Ox 99.5 F 88 18 122/75 93 06/18/18 07:00 06/18/18 07:00 06/18/18 07:00 06/18/18 07:00 06/18/18 07:00 General appearance: Present: A&O X 2 (Name place month year daily week but not date), morbidly obese, no acute distress, answers questions appropriately (But does fall asleep answering questions and has to woken up) - Head Head exam: Present: atraumatic, normocephalic - Neck Neck exam general surgery: Present: supple, trachea midline. Absent: lymphadenopathy - Respiratory Respiratory exam: Present: wheezes (occ) - Cardiovascular Cardiovascular exam: Present: RRR, systolic murmur - GI/Abdominal GI/Abdominal exam: Present: mass (rlq softball sized firm), no peritoneal signs. Absent: guarding, tenderness - Extremities Exam Extremities exam: Present: normal capillary refill, warm. Absent: pedal edema - Skin Skin exam: Present: dry, warm. Absent: rash Internal Medicine: Result - Labs CBC & Chem 7: 06/18/18 05:30 06/18/18 05:30 Labs: Short CBC 06/18/18 Range/Units 05:30 WBC 11.5 H (4.3-11.1) K/mcL Hgb 11.8 D (11.5-15.4) g/dL Hct 35.0 L (35.3-44.9) % Plt Count 172 (140-400) K/mcL Neutrophils # 9.0 H (1.6-8.9) K/mcL BMP 06/18/18 05:30 Sodium 131 L Potassium 3.6 Chloride 99 Carbon Dioxide 27 BUN 9 Creatinine 0.84 Glucose 105 Calcium 8.3 L - ABG Interpretation ABG results: PT/INR, D-dimer PT 13.7 Seconds (9.4-12.1) H 06/17/18 03:00 D-Dimer 1657 ng/mLFEU (0-500) H 06/17/18 03:00 Consult Discharge Plan - Plan Referrals: Jennifer Zaidi, TRANSPORTATION ASSISTANT [Primary Care Provider] -
[2018-06-18] MEDS ORDERED: Isovue-370 500 ML INFUS..BTL IV ONE (11:05)
[2018-06-18] MEDS ORDERED: ISOVUE-370 100 ML INFUS..BTL IVP ONE (11:34)
[2018-06-18] MEDS: Benzonatate 100 MG CAPSULE PO PRN (21:35)
[2018-06-19] MEDS: Ipratropium/Albuterol Neb 3 ML IH SCH ×6 (00:49→20:24)
[2018-06-19] MEDS: Piperacillin/Tazobactam 3.375 GM in 0.9 % Sodium Chloride Mini Bag 100 ML IVPB SCH ×3 (04:12→20:25)
[2018-06-19 05:48] LABS: Basophils % 0.4 %; Eosinophils # 0.2 K/mcL (0.0-0.6); Eosinophils % 2.8 %; Hematocrit 35.8 % (35.3-44.9); Hemoglobin 12.2 g/dL (11.5-15.4); Immature Granulocytes % 0.6 % (0-4); Lymphocytes # 0.9 K/mcL (0.6-4.6); Lymphocytes % 12.3 %; Mean Corpuscular HGB Conc 34.1 g/dL (31.6-35.5); Mean Corpuscular Volume 91.1 fL (83.0-100.0); Mean Platelet Volume 9.5 fL (9.4-12.4); Monocytes # 0.7 K/mcL (0.0-1.3); Monocytes % 10.3 %; Neutrophils # 5.3 K/mcL (1.6-8.9); Platelet Count 196 K/mcL (140-400); Red Blood Count 3.93 M/mcL (3.82-4.97); Red Cell Distribution Width 13.3 % (11.5-14.5); Segmented Neutrophils % 73.6 %
[2018-06-19 06:05] LABS: BUN/Creatinine Ratio 8 (6-26); Blood Urea Nitrogen 6 mg/dL (8-23); Calcium 8.9 mg/dL (8.6-10.3); Carbon Dioxide 28 mEq/L (23-29); Chloride 97 mEq/L (98-107); Glucose 104 mg/dL (70-105); Osmolality,Calculated 270 (280-300); Potassium 3.3 mEq/L (3.5-5.1); Sodium 131 mEq/L (136-145); eGFR For Non-African Americans > 60 (> 60)
[2018-06-19] MEDS: *HR* Heparin 5,000 UNIT/ML VIAL SQ SCH ×2 (06:26→20:25)
[2018-06-19] MEDS: Loratadine 10 MG TABLET PO SCH (10:16)
[2018-06-19] MEDS: Furosemide 20 MG TABLET PO SCH (10:16)
[2018-06-19] MEDS: Aspirin Enteric Coated 81 MG Tablet PO SCH (10:16)
[2018-06-19] MEDS: Multivit/Ca/Min/Fe/FA 1 TAB TABLET PO SCH (10:16)
[2018-06-19] MEDS: CRANBERRY FRUIT EXTRACT 425 MG PO SCH ×3 (10:17→20:21)
[2018-06-19] MEDS: Fluticasone Propionate Nasal 50 MCG/SPRAY BOTTLE NS SCH ×3 (10:17→20:26)
[2018-06-19] MEDS: Benzonatate 100 MG CAPSULE PO PRN (10:33)
--- NOTE | 2018-06-19 12:46 | Internal Med Progress Note ---
Date of Encounter: 06/19/18 Time of Encounter: 13:55 - Assessment and plan (1) Urinary tract infection Current Visit: Yes Status: Acute Assessment and plan: urine culture is growing gram neg rods. on the zosyn. last fever 24 hours ago. wbc is coming down. blood cultures are not at 48 hours yet and sensitivities pending will continue the zosyn. Qualifiers: Urinary tract infection type: acute cystitis Hematuria presence: with hematuria Qualified Code(s): N30.01 - Acute cystitis with hematuria (2) Leukocytosis (leucocytosis) Current Visit: Yes Status: Acute Assessment and plan: this has improved. she did have a fever the night before last. will continue the zosyn and the vancomycin with her AVR. cultures are still pending. urine has gram neg rods. will wait until blood cultures are negative for 48 hours to stop the vanco with her recent AVR.she is feeling better Qualifiers: Leukocytosis type: unspecified Qualified Code(s): D72.829 - Elevated white blood cell count, unspecified (3) HTN (hypertension) Current Visit: Yes Status: Acute Assessment and plan: has been stable on her home medication Qualifiers: Hypertension type: essential hypertension Qualified Code(s): I10 - Essential (primary) hypertension (4) Mixed hyperlipidemia Current Visit: Yes Status: Acute Assessment and plan: continue her home medication (5) Lumbar foraminal stenosis Current Visit: Yes Status: Acute Assessment and plan: holding flexeril due to age and decreased mental status. was holding the hydrocodone for the same reason. she has had three doses of hydrocodone since she has been admitted (6) S/P AVR (aortic valve replacement) Current Visit: Yes Status: Acute Assessment and plan: on vanco pending blood cultures if negative at 48 hours will d/c (7) Tobacco abuse Current Visit: Yes Status: Acute (8) COPD (chronic obstructive pulmonary disease) Current Visit: Yes Status: Acute Assessment and plan: continue with the neb treatments Qualifiers: COPD type: unspecified COPD Qualified Code(s): J44.9 - Chronic obstructive pulmonary disease, unspecified (9) DVT prophylaxis Current Visit: No Status: Acute Assessment and plan: heparin sq (10) Hypokalemia Current Visit: No Status: Resolved Assessment and plan: it was low again today did get po potassium ordered (11) Aortic stenosis, severe Current Visit: No Status: Acute - Subjective Interval history: she is feeling better today. she is more alert. she has had a cough with clear sputum. the cough does give her a headache. occ sob when getting up, got up to toilet and got winded.no cp, no palp, no dizzy, . denies dysuria, or hematuria. she is having urinary frequency today - Constitutional Vitals: Temp Pulse Resp BP Pulse Ox 98.2 F 90 20 143/79 92 06/19/18 07:18 06/19/18 07:18 06/19/18 07:18 06/19/18 07:18 06/19/18 07:18 General appearance: Present: A&O X 2 (Name place month year daily week but not date), morbidly obese, no acute distress, answers questions appropriately (But does fall asleep answering questions and has to woken up) - Head Head exam: Present: atraumatic, normocephalic - Neck Neck exam general surgery: Present: supple, trachea midline. Absent: lymphadenopathy, tenderness - Respiratory Respiratory exam: Present: rhonchi. Absent: wheezes - Cardiovascular Cardiovascular exam: Present: RRR, systolic murmur - GI/Abdominal GI/Abdominal exam: Present: normal bowel sounds, soft, no peritoneal signs. Absent: tenderness - Extremities Exam Extremities exam: Present: warm. Absent: cyanotic, pedal edema - Skin Skin exam: Present: dry, warm. Absent: rash Internal Medicine: Result - Labs CBC & Chem 7: 06/19/18 05:30 06/19/18 05:30 Labs: Short CBC 06/19/18 Range/Units 05:30 WBC 7.2 (4.3-11.1) K/mcL Hgb 12.2 (11.5-15.4) g/dL Hct 35.8 (35.3-44.9) % Plt Count 196 (140-400) K/mcL Neutrophils # 5.3 (1.6-8.9) K/mcL BMP 06/19/18 05:30 Sodium 131 L Potassium 3.3 L Chloride 97 L Carbon Dioxide 28 BUN 6 L Creatinine 0.71 Glucose 104 Calcium 8.9 - ABG Interpretation ABG results: PT/INR, D-dimer PT 13.7 Seconds (9.4-12.1) H 06/17/18 03:00 D-Dimer 1657 ng/mLFEU (0-500) H 06/17/18 03:00 - Impressions Impressions Abdomen/Pelvis CT 06/18/18 11:05 IMPRESSION: 1. No acute infective or inflammatory process. 2. Trace left pleural effusion. 3. No intra-abdominal mass is demonstrated. D/ / Jose Damon MD / Jose Damon MD Interpreting Provider: Jose Damon MD Consult Discharge Plan - Plan Referrals: Jennifer Zaidi, TOSSER [Primary Care Provider] -
--- NOTE | 2018-06-19 14:12 | Electrocardiograph Report ---
[place] [id number] Test Date: 2018-06-17 Pat Name: Diana Hernández Department: 2000 Room: 111 Gender: F Bone Puller: : 1940 Requested By: Campos Castro Order Number: [id number] Reading MD: Guero Gan Measurements Intervals [place] Rate: 110 P: 39 NC: 116 QRS: 25 QRSD: 94 T: 55 QT: 300 QTc: 365 Interpretive Statements SINUS TACHYCARDIA NONSPECIFIC ST & T-WAVE ABNORMALITY Electronically Signed On 06-19-2018 14:10:32 EST by Guero Gan
[2018-06-19] MEDS ORDERED: Aminoglycoside Consult 1 EACH MC ONE (14:44)
[2018-06-19] MEDS: *HR* HYDROcodone/Acet 5/325 mg TABLET PO PRN (23:55)
[2018-06-20] MEDS: Ipratropium/Albuterol Neb 3 ML IH SCH ×5 (00:15→14:00)
[2018-06-20] MEDS: Piperacillin/Tazobactam 3.375 GM in 0.9 % Sodium Chloride Mini Bag 100 ML IVPB SCH ×2 (03:45→13:29)
[2018-06-20] MEDS: *HR* Heparin 5,000 UNIT/ML VIAL SQ SCH (04:46)
[2018-06-20 06:08] LABS: Basophils % 0.4 %; Eosinophils # 0.5 K/mcL (0.0-0.6); Eosinophils % 7.7 %; Immature Granulocytes % 0.4 % (0-4); Lymphocytes % 14.9 %; Mean Corpuscular HGB Conc 34.3 g/dL (31.6-35.5); Mean Corpuscular Hemoglobin 30.7 pg (28.0-33.3); Mean Corpuscular Volume 89.5 fL (83.0-100.0); Mean Platelet Volume 9.2 fL (9.4-12.4); Monocytes # 0.8 K/mcL (0.0-1.3); Monocytes % 11.2 %; Neutrophils # 4.5 K/mcL (1.6-8.9); Platelet Count 219 K/mcL (140-400); Red Blood Count 3.91 M/mcL (3.82-4.97); Red Cell Distribution Width 13.2 % (11.5-14.5); Segmented Neutrophils % 65.4 %
[2018-06-20 06:24] LABS: BUN/Creatinine Ratio 10 (6-26); Blood Urea Nitrogen 6 mg/dL (8-23); Calcium 9.1 mg/dL (8.6-10.3); Carbon Dioxide 28 mEq/L (23-29); Chloride 97 mEq/L (98-107); Glucose 100 mg/dL (70-105); Osmolality,Calculated 272 (280-300); Potassium 3.5 mEq/L (3.5-5.1); Sodium 132 mEq/L (136-145); eGFR For Non-African Americans > 60 (> 60)
[2018-06-20] MEDS: Multivit/Ca/Min/Fe/FA 1 TAB TABLET PO SCH (08:04)
[2018-06-20] MEDS: Aspirin Enteric Coated 81 MG Tablet PO SCH (08:04)
[2018-06-20] MEDS: Loratadine 10 MG TABLET PO SCH (08:05)
[2018-06-20] MEDS: Furosemide 20 MG TABLET PO SCH (08:05)
[2018-06-20] MEDS: CRANBERRY FRUIT EXTRACT 425 MG PO SCH ×2 (08:11→13:50)
[2018-06-20] MEDS: *HR* HYDROcodone/Acet 5/325 mg TABLET PO PRN ×2 (08:15→14:26)
--- NOTE | 2018-06-20 08:33 | Discharge Summary ---
Orders not resulted at time of discharge: Pending orders 06/17/18 02:00 Pain Mgt Urine Drug Screen Routine 06/17/18 03:00 Culture,Blood [] Stat Date of Encounter: 06/20/18 Time of Encounter: 08:33 - Discharge Diagnosis (1) Urinary tract infection Priority: Primary Status: Acute Comments: She came in confused disoriented difficult to arouse. She was noted to have an elevated white count on admission she was started on Zosyn and vancomycin initiated had a recent aortic valve replacement blood cultures were negative on the day of discharge. Urine culture was growing Escherichia coli it was sensitive to Augmentin. She was sent home on oral Augmentin. Her confusion did resolve we did have to stop her Flexeril and we stopped her hydrocodone due to her decreased alertness. She only had 5 doses of 5 mg hydrocodone from Sunday to . Her pain was tolerable with that. Her pain was tolerable off the Flexeril as well. I discussed with her at length that it was not safe for her to continue taking these doses of medication issue was at risk for respiratory suppression and . Also discussed with her son about cut back on her medication. They are to bring in her bottle a 7.5 hydrocodone to the office and exchange it for a prescription of 5 mg. She had a fever of the second day of 100.6 but has not had a fever since then. Qualifiers: Urinary tract infection type: acute cystitis Hematuria presence: with hematuria Qualified Code(s): N30.01 - Acute cystitis with hematuria (2) Leukocytosis (leucocytosis) Priority: Secondary Status: Acute Comments: White count was elevated due to the UTI she was on Zosyn and vancomycin in view of the fact that she had had an aortic valve replacement. Blood cultures did not grow anything her urine culture did grow Escherichia coli was sensitive to Zosyn and sensitive to Augmentin that she was sent home on. Qualifiers: Leukocytosis type: unspecified Qualified Code(s): D72.829 - Elevated white blood cell count, unspecified (3) HTN (hypertension) Priority: Secondary Status: Acute Comments: This was stable on her home medication up until the day of discharge when, little bit high will continue to have her monitor her blood pressures as an outpatient will arrange for home health also check up on her as well. Need adjusted if it continues to run high. Qualifiers: Hypertension type: essential hypertension Qualified Code(s): I10 - E ssential (primary) hypertension (4) Mixed hyperlipidemia Priority: Secondary Status: Acute Comments: We continued her home medication with no changes. (5) Lumbar foraminal stenosis Priority: Secondary Status: Acute Comments: We cut back on her medication while she was in here she was stable without taken any the Flexeril her pain is acceptable while she was here. I Dickler hydrocodone back to 5 mg daily she received 5 doses while inpatient. This was nowhere near the 7.5 every 6 hours that she was taking at home. I did cut that back when she came in she was very hard to arouse she was found asleep in mid sentence. So I discussed this with her and discussed this with her son we will have her bring in her bottle 7.5 and replace it with a 5 with this new prescription. (6) S/P AVR (aortic valve replacement) Priority: Secondary Status: Acute Comments: She remained hemodynamically stable she does have a murmur. Her blood cultures did not grow anything she was on vancomycin because of the elevated white count and her recent aortic valve replacement. She is scheduled to have outpatient cardiac rehabilitation but she has yet been unable to get to their and she will have to be a little bit stronger prior to starting cardiac rehabilitation (7) Tobacco abuse Priority: Secondary Status: Acute Comments: Discussed smoking cessation with her discuss it is very important for long-term health to quit smoking (8) COPD (chronic obstructive pulmonary disease) Priority: Secondary Status: Acute Comments: She was on duo nebs while she was here. She was hypoxic initially she was eventually weaned to room air but with still desaturate when she would get up in the toilet she would recover with oxygen. She was sent home with home oxygen for when she gets up and exerts herself. Discussed smoking cessation with her. She did not get any steroids that she had an elevated white count and she did not have any wheezing. Qualifiers: COPD type: unspecified COPD Qualified Code(s): J44.9 - Chronic obstructive pulmonary disease, unspecified (9) DVT prophylaxis Priority: Secondary Status: Acute Comments: She was on heparin subcutaneous while she was here. (10) Hypokalemia Priority: Secondary Status: Resolved Comments: She did receive by mouth potassium for her hypokalemia while she was here (11) Aortic stenosis, severe Priority: Secondary Status: Acute Hospital course: Ms. Hernández is a 77 year old female Limited to the emergency room with decreased mental status hypoxia leukocytosis. Positive for opiates. He had a head CT. She had a lung CT rule out a PE given she had an elevated d-dimer and ER there was not any PE on her CT scan of her lungs but there were secretions in the trachea. Sergio is felt possible related to aspiration given have tended she was thought that with possibility she was started on Zosyn and vancomycin. She had had a recent aortic valve replacement so that is why the vancomycin was added she did have a fever on the second day of 100.6. She has not had a fever since then. Her white count did come down to normal her blood cultures are negative. Her urine culture did grow Escherichia coli that was sensitive to the Zosyn and the Augmentin that she was sent home on. Her hydrocodone and Flexeril were held due to the decreased mental status change she did not receive any Narcan. On the evening of the her alertness did increase. She was no longer falling asleep mid sentence she was easy to have a conversation with. Discussed with her that she should stop the Flexeril given her age and her mental status changes and that we should cut back on her hydrocodone due to the decreased mental status changes when she came in. She only received 5 doses of hydrocodone while she was inpatient. She did not receive any doses of Flexeril. Her pain was controlled. I did discuss with her son about Chilo off the Flexeril and decreasing hydrocodone they were to bring her pill bottle into the office tomorrow we will give them a 5 mg dose of hydrocodone and they were to turn in the 7.5 mg hydrocodone. She was discharged home in stable condition she no longer drive she is going home to stay with her family in [place] we will arrange for home health care she was hypoxic on admission home she did get ringing to room air while she was in bed but when she was up and moving around she did desats to the 80s she was sent home on home oxygen as she did recover with oxygen afterwards. - Time Spent with Patient Total time spent providing and/or coordinating discharge services: - Discharge Medications Prescriptions: Amoxicillin/Clavulanate [Augmentin] 875 mg PO BIDWM #14 tablet HYDROcodone/Acet 5/325 mg [Adams 5-325 mg] 1 tab PO Q6H PRN 1 Days #1 tab PRN Reason: Pain Oxygen 2 l .ROUTE AD 99 Days #1 supp Home Medications: Paroxetine HCl [Paroxetine] 40 mg PO DAILY 08/07/15 [History] Cetirizine HCl [Zyrtec] 10 mg PO DAILY 08/18/15 [History] Cranberry Fruit Extract [Cranberry] 425 mg PO TID 08/18/15 [History] Melatonin/Pyridoxine HCl (B6) [Melatonin 5 mg Tablet] 10 mg PO HS PRN 08/18/15 [History] Multivitamin [Multi-Day Vitamins] 1 each PO DAILY 08/18/15 [History] Pravastatin Sodium 80 mg PO DAILY 09/08/16 [History] Carvedilol 3.125 mg PO BID #60 tab 10/07/17 [Rx] Furosemide [Lasix] 20 mg PO DAILY #30 tablet 10/07/17 [Rx] Potassium Chloride 10 meq PO DAILY #30 tab.er.prt 10/07/17 [Rx] Aspirin [Adult Aspirin Regimen] 81 mg PO DAILY 05/28/18 [History] Clopidogrel [Plavix] 75 mg PO DAILY 05/28/18 [History] Docusate Sodium [Dulcolax Stool Softener] 100 mg PO TID PRN 05/28/18 [History] Fluticasone Propionate Nasal [Flonase] 27.5 mcg NS BID 05/28/18 [History] Montelukast [Singulair] 10 mg PO HS 05/28/18 [History] Amoxicillin/Clavulanate [Augmentin] 875 mg PO BIDWM #14 tablet 06/20/18 [Rx] HYDROcodone/Acet 5/325 mg [Adams 5-325 mg] 1 tab PO Q6H PRN 1 Days #1 tab 06/20/18 [Rx] Ipratropium/Albuterol Neb [Duoneb] 3 ml IH [id number] inhsol 06/20/18 [Rx] Oxygen 2 l .ROUTE AD 99 Days #1 supp 06/20/18 [Rx] Piperacillin/Tazobactam [Zosyn] 3.375 gm IVPB Q8H vial 06/20/18 [Rx] Vancomycin [Vancocin] 1,750 mg IVPB Q24H vial 06/20/18 [Rx] Allergies/Adverse Reactions: Allergy/AdvReac Type Severity Reaction Status Date / Time Lemon AdvReac Severe Migraine Verified 06/17/18 02:23 ciprofloxacin [From Cipro] AdvReac Dizziness Verified 06/17/18 02:23 Sulfa (Sulfonamide AdvReac Nausea Verified 06/17/18 02:23 Antibiotics) Date of admission: 06/17/18 14:22 Primary care physician: Jennifer Zaidi CNP - Constitutional Vitals: Temp Pulse Resp BP Pulse Ox 97.8 F 86 18 148/85 93 06/20/18 07:57 06/20/18 07:57 06/20/18 07:57 06/20/18 07:57 06/20/18 07:57 General appearance: Present: A&O X 2 (Name place month year daily week but not date), morbidly obese, no acute distress, answers questions appropriately (But does fall asleep answering questions and has to woken up) - Head Head exam: Present: atraumatic, normocephalic - Neck Neck exam general surgery: Present: normal inspection, supple, trachea midline. Absent: lymphadenopathy - Respiratory Respiratory exam: Present: CTAB - Cardiovascular Cardiovascular exam: Present: RRR, systolic murmur - GI/Abdominal GI/Abdominal exam: Present: normal bowel sounds, no peritoneal signs. Absent: distended, guarding, mass, tenderness - Extremities Exam Extremities exam: Present: normal capillary refill. Absent: mottling, pedal edema - Skin Skin exam: Present: dry, warm. Absent: rash - Patient Status Disposition: Home Health Service Condition: Fair Overall status at discharge: patient is progressing back to baseline - Discharge Instructions Instructions: Urinary Tract Infection in Women (DC), Chronic Obstructive Pulmonary Disease (DC), Sepsis (DC), Chronic Hypertension (DC) Follow Up With: Jennifer Zaidi CNP [Primary Care Provider] - 06/25/18 11:00 am Forms: ED Satisfaction Letter - Diet and Activity Diet: low fat, low cholesterol
[2018-06-20] MEDS: Fluticasone Propionate Nasal 50 MCG/SPRAY BOTTLE NS SCH (09:14)
[2018-06-20 11:22] VITALS: BP 126/84
--- NOTE | 2018-06-20 12:38 | Physician Discharge Referral ---
Home Health/Hosp Referral Info Transfer to: Home Health - Diagnosis (1) Urinary tract infection Priority: Primary Status: Acute (2) Leukocytosis (leucocytosis) Priority: Secondary Status: Acute (3) HTN (hypertension) Priority: Secondary Status: Acute (4) Mixed hyperlipidemia Priority: Secondary Status: Acute (5) Lumbar foraminal stenosis Priority: Secondary Status: Acute (6) S/P AVR (aortic valve replacement) Priority: Secondary Status: Acute (7) Tobacco abuse Priority: Secondary Status: Acute (8) COPD (chronic obstructive pulmonary disease) Priority: Secondary Status: Acute (9) DVT prophylaxis Priority: Secondary Status: Acute (10) Hypokalemia Priority: Secondary Status: Resolved (11) Aortic stenosis, severe Priority: Secondary Status: Acute - Respiratory Orders Oxygen / L per min (2l nc) Smoking Cessation: Smoking cessation has been advised. For more information, call the [employer] Quit Line at [phone]-NOW. - Diet/Nutrition Diet/Nutrition Orders: Cardiac - Activity Activity Orders: Up ad kamla, Ambulate - Services Needed Following services are medically necessary services: Nursing, Home Health Aide, Physical Therapy, Occupational Therapy - Transfer Medications Prescriptions: Amoxicillin/Clavulanate [Augmentin] 875 mg PO BIDWM #14 tablet HYDROcodone/Acet 5/325 mg [Dagmar 5-325 mg] 1 tab PO Q6H PRN 1 Days #1 tab PRN Reason: Pain Oxygen 2 l .ROUTE AD 99 Days #1 supp Home Medications: Paroxetine HCl [Paroxetine] 40 mg PO DAILY 08/07/15 [History] Cetirizine HCl [Zyrtec] 10 mg PO DAILY 08/18/15 [History] Cranberry Fruit Extract [Cranberry] 425 mg PO TID 08/18/15 [History] Melatonin/Pyridoxine HCl (B6) [Melatonin 5 mg Tablet] 10 mg PO HS PRN 08/18/15 [History] Multivitamin [Multi-Day Vitamins] 1 each PO DAILY 08/18/15 [History] Pravastatin Sodium 80 mg PO DAILY 09/08/16 [History] Carvedilol 3.125 mg PO BID #60 tab 10/07/17 [Rx] Furosemide [Lasix] 20 mg PO DAILY #30 tablet 10/07/17 [Rx] Potassium Chloride 10 meq PO DAILY #30 tab.er.prt 10/07/17 [Rx] Aspirin [Adult Aspirin Regimen] 81 mg PO DAILY 05/28/18 [History] Clopidogrel [Plavix] 75 mg PO DAILY 05/28/18 [History] Docusate Sodium [Dulcolax Stool Softener] 100 mg PO TID PRN 05/28/18 [History] Fluticasone Propionate Nasal [Flonase] 27.5 mcg NS BID 05/28/18 [History] Montelukast [Singulair] 10 mg PO HS 05/28/18 [History] Amoxicillin/Clavulanate [Augmentin] 875 mg PO BIDWM #14 tablet 06/20/18 [Rx] HYDROcodone/Acet 5/325 mg [Dagmar 5-325 mg] 1 tab PO Q6H PRN 1 Days #1 tab 06/20/18 [Rx] Ipratropium/Albuterol Neb [Duoneb] 3 ml IH [id number] inhsol 06/20/18 [Rx] Oxygen 2 l .ROUTE AD 99 Days #1 supp 06/20/18 [Rx] Piperacillin/Tazobactam [Zosyn] 3.375 gm IVPB Q8H vial 06/20/18 [Rx] Vancomycin [Vancocin] 1,750 mg IVPB Q24H vial 06/20/18 [Rx] Allergies/Adverse Reactions: Allergy/AdvReac Type Severity Reaction Status Date / Time Lemon AdvReac Severe Migraine Verified 06/17/18 02:23 ciprofloxacin [From Cipro] AdvReac Dizziness Verified 06/17/18 02:23 Sulfa (Sulfonamide AdvReac Nausea Verified 06/17/18 02:23 Antibiotics) Certification: Further, I certify that my clinical findings support that this patient is homebound (i.e. absences from home require considerable and taxing effort and are for medical reasons or christian services or infrequently or short duration when for other reasons) because: Homebound Reason: Patient requires assistance of a person or device to safely leave home (she is on oxygen), Leaving home requires considerable and taxing effort due to condition (she no longer drives seh get sob with excertion), Altered mental status requiring supervision when leaving home Attestation: My signature below is to certify that this patient is under my care and that I, or nurse practitioner, or a physician's research lab assistant working with me, has a [id number] encounter with this patient.
== END 2018-06-20 14:45 | disposition home health service (06) | DRG 689 ==
LOC: EMEROOGRE 02:00 → INPGRE 02:00
PROVIDERS: ATTEND Family Medicine